=== PATIENT | male | born 1960 | race Caucasian/White ===

== ENCOUNTER 2022-12-09 10:18 | Outpatient (OUT) | payer BC, SELFPAY ==
[2022-12-09 12:28] LABS: Prostate Specific Antigen Dx 6.38 ng/mL (<=4.00)
== END 2022-12-09 10:19 | disposition home or self-care (01) ==
PROVIDERS: PCP Family Medicine; Visit Provider Urology
DX: N40.1 Benign prostatic hyperplasia with lower urinary tract symptoms (principal)
CPT/HCPCS: 36415; 84153

== ENCOUNTER 2024-01-25 08:34 | Outpatient (OUT) | payer MEDICARE, SELFPAY ==
[2024-01-25 09:51] LABS: Prostate Specific Antigen Scrn 5.38 ng/mL (<=4.00)
== END 2024-01-25 08:35 | disposition home or self-care (01) ==
LOC: LAB 08:36
PROVIDERS: PCP Family Medicine; Visit Provider Urology
DX: Z12.5 Encounter for screening for malignant neoplasm of prostate (principal)
CPT/HCPCS: 36415; G0103